=== PATIENT | male | born 1995 | race African-American/Black ===

== ENCOUNTER 2017-07-18 14:54 | Emergency (ER) | payer OTHER ==
[~2017-07-18] VITALS: Ht 177.8 cm; Wt 155.0 kg
[~2017-07-18 14:54] MED LIST: LORTA5 PO; TAMS0.4C67 PO; ZOFR4TAB3 SL
[2017-07-18 14:56] VITALS: BP 133/74; PULSE 93; RESP 18; TEMP 98.7; O2SAT 98
[2017-07-18] MEDS ORDERED: MORPHINE SULFATE 8 MG/ML INJ IV PUSH ONE ×2 (16:30→17:30)
[2017-07-18] MEDS ORDERED: ONDANSETRON HCL 4 MG/2 ML VIAL IV PUSH ONE (16:30)
[2017-07-18] MEDS ORDERED: SODIUM CHLOR 0.9% 1000 ML INJ 1,000 ML IV ONE (16:30)
--- NOTE | 2017-07-18 16:30 | PD ---
HPI Chief Complaint: Complaint Time Seen by Provider: 16:14 Travel History International Travel<30 days: No Contact w/Intl Traveler<30days: No Traveled to known affect area: No History of Present Illness HPI This is a 22-year-old male who presents to the emergency department with dysuria that's been going on for 2 days, constant, moderate severity, hurting before and after he urinates and with some pain in the right groin. He feels like his urine is cloudy urine darker. He denies any fevers or chills but he has felt nauseous. Patient has had this kidney stones and urinary tract infections in the past. He has no discharge from his penis. He says his kidney stones hurt a lot more than this. He does have some right flank discomfort. PFSH Past Medical History Asthma: Yes Diminished Hearing: No Kidney Stones: Yes Reproductive: Yes Respiratory: Yes Tetanus Vaccination: > 5 Years Influenza Vaccination: No Past Surgical History Surgical History: No Previous Surgery Other Surgery: Yes (ABSCESS REMOVED UNDER CHIN) Social History Alcohol Use: Yes (OCC) Tobacco Use: No (quit 4 years ago) Substance Use: Yes (MARIJUANA) Allergies-Medications (Allergen,Severity, Reaction): Coded Allergies: ibuprofen (Verified Allergy, Intermediate, HIVES, 07/18/17) Reported Meds & Prescriptions Reported Meds & Active Scripts Active No Active Prescriptions or Reported Medications Review of Systems Except as stated in HPI: all other systems reviewed are Neg Physical Exam Narrative GENERAL:Well appearing, no acute distress SKIN: Focused skin assessment warm and dry. HEAD: Atraumatic. Normocephalic. EYES: Pupils equal and round. No injection or drainage. ENT: Moist mucous membranes NECK: Trachea midline. CARDIOVASCULAR: Regular rate and rhythm. No murmur appreciated. RESPIRATORY: Clear to auscultation. Breath sounds equal bilaterally. GASTROINTESTINAL: Abdomen soft, tender to palpation in the right lower quadrant with no rebound or guarding. : No CVA tenderness MUSCULOSKELETAL: No obvious deformities. NEUROLOGICAL: Awake and alert. No obvious cranial nerve deficits. Moving all extremities. PSYCHIATRIC: Appropriate mood and affect; insight and judgment normal. Data Data Last Documented VS Vital Signs Date Time Temp Pulse Resp B/P (MAP) Pulse Ox O2 Delivery O2 Flow Rate FiO2 07/18/17 16:32 17 07/18/17 16:02 86 07/18/17 14:56 98.7 133/74 (93) 98 Room Air Orders Orders Complete Blood Count With Diff (07/18/17 16:20) Comprehensive Metabolic Panel (07/18/17 16:20) Urinalysis - C+S If Indicated (07/18/17 16:20) ^ Insert Iv (07/18/17 16:20) Sodium Chlor 0.9% 1000 Ml Inj (Ns 1000 M (07/18/17 16:30) Morphine Inj (Morphine Inj) (07/18/17 16:30) Ondansetron Inj (Zofran Inj) (07/18/17 16:30) Ed Poc Ultrasound (07/18/17 ) Urine Culture (07/18/17 16:46) Labs Laboratory Tests Test 07/18/17 16:26 07/18/17 16:46 White Blood Count 8.2 TH/MM3 Red Blood Count 4.65 MIL/MM3 Hemoglobin 14.6 GM/DL Hematocrit 43.5 % Mean Corpuscular Volume 93.5 FL Mean Corpuscular Hemoglobin 31.3 PG Mean Corpuscular Hemoglobin Concent 33.5 % Red Cell Distribution Width 13.7 % Platelet Count 296 TH/MM3 Mean Platelet Volume 8.6 FL Neutrophils (%) (Auto) 79.4 % Lymphocytes (%) (Auto) 12.5 % Monocytes (%) (Auto) 6.7 % Eosinophils (%) (Auto) 1.0 % Basophils (%) (Auto) 0.4 % Neutrophils # (Auto) 6.5 TH/MM3 Lymphocytes # (Auto) 1.0 TH/MM3 Monocytes # (Auto) 0.5 TH/MM3 Eosinophils # (Auto) 0.1 TH/MM3 Basophils # (Auto) 0.0 TH/MM3 CBC Comment DIFF FINAL Differential Comment Blood Urea Nitrogen 12 MG/DL Creatinine 1.39 MG/DL Random Glucose 103 MG/DL Total Protein 7.5 GM/DL Albumin 3.7 GM/DL Calcium Level 8.9 MG/DL Alkaline Phosphatase 106 U/L Aspartate Amino Transf (AST/SGOT) 32 U/L Alanine Aminotransferase (ALT/SGPT) 54 U/L Total Bilirubin 0.4 MG/DL Sodium Level 140 MEQ/L Potassium Level 4.3 MEQ/L Chloride Level 106 MEQ/L Carbon Dioxide Level 27.8 MEQ/L Anion Gap 6 MEQ/L Estimat Glomerular Filtration Rate 76 ML/MIN Urine Color LIGHT-RED Urine Turbidity HAZY Urine pH 6.0 Urine Specific [place] 1.037 Urine Protein 100 mg/dL Urine Glucose (UA) NEG mg/dL Urine Ketones 10 mg/dL Urine Occult Blood LARGE Urine Nitrite NEG Urine Bilirubin NEG Urine Urobilinogen 4.0 MG/DL Urine Leukocyte Esterase TRACE Urine RBC /hpf Urine WBC 8 /hpf Urine Squamous Epithelial Cells 7 /hpf Urine Mucus MANY /lpf Microscopic Urinalysis Comment CULTURE INDICATED MDM Medical Decision Making Medical Screen Exam Complete: Yes Emergency Medical Condition: Yes Interpretation(s) Afebrile, no tachycardia, hypertensive No leukocytosis GFR 76 Urinalysis: Large amount of blood with 8 white blood cells likely elevated in the setting of RBCs Differential Diagnosis Nephrolithiasis, urethritis, hydronephrosis, pyelonephritis Narrative Course This is a 22-year-old male who presents to the emergency department with right sided flank pain and groin pain associated with hematuria. Patient has had kidney stones in the past. He is placed on a monitor and an IV was established. Labs are obtained which are reassuring. Urinalysis demonstrates large amount of blood. [id number] ultrasound demonstrates no hydronephrosis on either side. Based on the patient's symptoms I suspect he has a kidney stone. We discussed the risks versus benefits of CT imaging. He agrees that we will defer CT imaging at this time as he's never required an intervention on a stone before and will likely pass on its own. He'll be prescribed pain control, antiemetics and he can follow up with urology. He can return if his symptoms worsen. I'll also cover him with Keflex and the case that he has a mild urinary tract infection but he doesn't seem systemically infected. Procedures Procedure Narrative Point of care ultrasound: No hydronephrosis Diagnosis Primary Impression: Kidney stone on right side Patient Instructions: General Instructions Additional Instructions: If you develop severe pain, inability to eat or drink, or fever return to the emergency department. Use a strainer to try to catch your stone. Take lortab as needed for pain, and continue taking zofran as needed for nausea. Follow up with urology as soon as possible. Med/Other Pt SpecificInfo: Prescription(s) given Scripts Ondansetron Odt (Zofran Odt) 4 Mg Tab 4 MG SL Q6HR Y for Nausea/Vomiting, #15 TAB 0 Refills Prov: Josseline Monreal MD 07/18/17 Hydrocodone-Acetaminophen (Lortab) 5-325 Mg Tab 1 TAB PO Q6H Y for PAIN, #14 TAB 0 Refills Prov: Josseline Monreal MD 07/18/17 Disposition: 01 DISCHARGE HOME Condition: Stable Josseline Monreal MD Jul 18, 2017 16:30
[2017-07-18 16:55] LABS: AUTOMATED NEUTROPHIL # 6.5 TH/MM3 (1.8-7.7); BASOPHIL % 0.4 % (0.0-2.0); EOSINOPHIL # 0.1 TH/MM3 (0-0.4); HEMATOCRIT 43.5 % (39.0-51.0); HEMO FLAGS DIFF FINAL; LYMPH % 12.5 % (9.0-44.0); MEAN CELL VOLUME 93.5 FL (80.0-100.0); MEAN CORPUSCULAR HEMOGLOBIN 31.3 PG (27.0-34.0); MEAN CORPUSCULAR HGB CONC 33.5 % (32.0-36.0); MONO % 6.7 % (0.0-8.0); NEUT % 79.4 % (16.0-70.0); PLATELET COUNT 296 TH/MM3 (150-450); RED BLOOD COUNT 4.65 MIL/MM3 (4.50-5.90); RED CELL DISTRIBUTION WIDTH 13.7 % (11.6-17.2); WHITE BLOOD COUNT 8.2 TH/MM3 (4.0-11.0)
[2017-07-18 17:01] LABS: BLOOD, URINE LARGE (NEG); COMMENT (UR) CULTURE INDICATED; CULTURE IF INDICATED CULTURE INDICATED; GLUCOSE,URINE NEG (NEG); KETONE, URINE 10 mg/dL (NEG); MUCUS URINE MANY /lpf (OCC); NITRITE,URINE NEG (NEG); SQUAMOUS EPITHELIAL CELL URINE 7 /hpf (0-5); URINE COLOR LIGHT-RED (YELLW/STRAW)
[2017-07-18 17:07] LABS: ANION GAP 6 MEQ/L (5-15); AST (GOT) 32 U/L (15-37); BICARBONATE 27.8 MEQ/L (21.0-32.0); BLOOD UREA NITROGEN 12 MG/DL (7-18); CHLORIDE 106 MEQ/L (98-107); GLOMERULAR FILTRATION RATE 76 ML/MIN (>89); POTASSIUM 4.3 MEQ/L (3.5-5.1); SODIUM (NA) 140 MEQ/L (136-145)
[2017-07-18 17:14] LABS: ALKALINE PHOSPHATASE 106 U/L (45-117); ALT (GPT) 54 U/L (12-78); TOTAL BILIRUBIN ADULT 0.4 MG/DL (0.2-1.0)
[2017-07-18] MEDS ORDERED: HYDR-3533 PO (17:25)
[2017-07-18] MEDS ORDERED: ZOFR4TAB3 SL (17:25)
[2017-07-18] MEDS ORDERED: CEPH-460 PO (17:27)
[2017-07-18 17:48] VITALS: RESP 18
[2017-07-18 17:51] VITALS: BP 126/83; TEMP 97.8
== END 2017-07-18 17:53 | disposition home or self-care (01) ==
LOC: NEPD 14:54
DX: N20.0 Calculus of kidney (principal); N39.0 Urinary tract infection, site not specified; R31.9 Hematuria, unspecified; R11.0 Nausea; Z87.448 Personal history of other diseases of urinary system; Z87.09 Personal history of other diseases of the respiratory system
CPT/HCPCS: 80053; 81001; 85025; 87086; 96361; 96374; 96375; 99284; J2270; J2405; J7030